=== PATIENT | male | born 1995 | race Caucasian/White ===

== ENCOUNTER 2019-01-17 06:24 | Emergency (ER) | payer SELFPAY ==
[~2019-01-17] VITALS: Ht 180.3 cm; Wt 83.9 kg
[2019-01-17 06:28] VITALS: BP 144/90
--- NOTE | 2019-01-17 06:28 | NUR ---
PT AMBULATED TO ER BED 03
--- NOTE | 2019-01-17 06:36 | NUR ---
PT TO ED WITH C/O LACERATION TO PENIS. PER PT "MY GIRLFRIEND WAS PERFORMING ORAL SEX, THEN SHE CUT IT" BLEEDING CONTROLLED. PT PLACED INTO BED, PENDING MD MURRAY.
[2019-01-17 06:44] VITALS: BP 144/90
--- NOTE | 2019-01-17 06:45 | NUR ---
Patient discharged with v/s stable. Written and verbal after care instructions given and explained. Patient verbalized understanding. Ambulatory with steady gait. All questions addressed prior to discharge. Advised to follow up with PMD.
== END 2019-01-17 06:45 | disposition home or self-care (01) ==
LOC: MED 06:24
DX: S31.21XA Laceration without foreign body of penis, initial encounter (principal); X58.XXXA Exposure to other specified factors, initial encounter; Y93.89 Activity, other specified; Y92.89 Other specified places as the place of occurrence of the external cause; Y99.8 Other external cause status
CPT/HCPCS: 99281